=== PATIENT | female | born 1950 | race Caucasian/White ===

== ENCOUNTER 2017-12-15 09:35 | Emergency (ER) | payer MEDICARE, BC ==
[2017-12-15] MEDS ORDERED: predniSONE 10 MG Tab ONE (09:50)
--- NOTE | 2017-12-15 16:12 | ER ---
HISTORY OF PRESENT ILLNESS: Patient is a 67-year-old female who comes in with a chief complaint of a rash. She notes she got a sandfly bite on her right ear about 5 days ago. Yesterday, it started getting swollen, erythematous, and more pruritic. She also notes she has a rash on her forehead and on her arms which started at the same time as the ear becoming more pruritic and swollen. ALLERGIES: PENICILLIN, DEMEROL, AND TYLENOL NO. 3. CURRENT MEDICATIONS: Levothyroxine 88 mcg, paroxetine 30 mg, a baby aspirin, a multivitamin, and folic acid. PHYSICAL EXAMINATION: GENERAL: She is alert, oriented, no apparent distress. HEENT: Unremarkable. NECK: Supple. No nodes. LUNGS: Clear. HEART: Regular sinus rhythm. SKIN: The earlobe is erythematous. She has antibiotic ointment on it, so it is difficult to tell whether it is oozing. It is a little bit swollen. On the forehead, she has some vesicles on an erythematous base in a linear distribution. Similarly in the antecubital space in the left arm, there are some erythematous vesicles again in a linear distribution and some scattered vesicles on both breasts. ASSESSMENT: This appears to be a contact dermatitis. It is possible that she has a mild skin infection in the earlobe, but it is more pruritic than painful, and I think it is probably contact dermatitis secondary to poison zena. She does not recall any exposure, but she has been gardening, and the rash is in a linear distribution. We will go ahead and put her on some prednisone 60 mg p.o. daily x5 days, then decreasing by 10 mg a day. If this does not improve over the next couple of days or the ear gets more erythematous, painful, etc., would go ahead and get her an antibiotic for the earlobe, but it again appears to be similar to the rash she has elsewhere and is probably a contact dermatitis secondary to poison zena. INDIRA/MAHAD /[id number]
== END 2017-12-15 10:20 | disposition home or self-care (01) ==
LOC: LB.ED 09:35
DX: R21 Rash and other nonspecific skin eruption (principal)
CPT/HCPCS: 99283; A9270

== ENCOUNTER 2022-10-26 20:40 | Emergency (ER) | payer MEDICARE, BC ==
[2022-10-26] MEDS ORDERED: Levofloxacin 750 MG Tab ONE (22:13)
[2022-10-26] MEDS ORDERED: Levofloxacin 750 MG Tab PO SCH (22:15)
== END 2022-10-26 22:25 | disposition home or self-care (01) ==
LOC: LB.ED 20:40
DX: J20.9 Acute bronchitis, unspecified (principal); B96.89 Other specified bacterial agents as the cause of diseases classified elsewhere; E03.9 Hypothyroidism, unspecified; Z88.1 Allergy status to other antibiotic agents; Z88.0 Allergy status to penicillin; Z79.82 Long term (current) use of aspirin; Z79.899 Other long term (current) drug therapy; Z20.822 Contact with and (suspected) exposure to COVID-19
CPT/HCPCS: 71045; 99283; A9270; U0002